=== PATIENT | male | born 1965 | race Caucasian/White ===

== ENCOUNTER 2022-01-29 07:23 | Day surgery (SDC) | payer OTHER ==
[~2022-01-29] VITALS: Ht 165.1 cm; Wt 78.2 kg
[~2022-01-29 07:23] MED LIST: AMLO5 PO; ASPI81CH PO; COQ; GEMF600 PO; LOSARTAN-HCTZ1 EAC2 PO; Mobic15 MG PO; Multiple Vitam1 EAC1 PO; RANI150 PO
== END 2022-01-29 09:55 | disposition home or self-care (01) ==
LOC: ORSCSDS 07:23
PROVIDERS: Surgery
PROC: 0DJD8ZZ Inspection of Lower Intestinal Tract, Via Natural or Artificial Opening Endoscopic (ICD-10-PCS; principal; 2022-01-29 08:45)
DX: Z12.11 Encounter for screening for malignant neoplasm of colon (principal); Z86.010 Personal history of colon polyps; N40.0 Benign prostatic hyperplasia without lower urinary tract symptoms; K21.9 Gastro-esophageal reflux disease without esophagitis; K57.30 Diverticulosis of large intestine without perforation or abscess without bleeding; I10 Essential (primary) hypertension; E78.5 Hyperlipidemia, unspecified; Z79.82 Long term (current) use of aspirin; Z79.899 Other long term (current) drug therapy
CPT/HCPCS: 82947; J2704; J7120

== ENCOUNTER 2024-03-15 05:41 | Day surgery (SDC) | payer OTHER ==
[~2024-03-15] VITALS: Ht 165.1 cm; Wt 91.2 kg
[2024-03-15] VITALS (13 sets, daily range): BP systolic 142–170; BP diastolic 91–116
[~2024-03-15 05:41] MED LIST changes: +LOSARTAN-HCTZ1 EACH PO
[2024-03-15] MEDS ORDERED: Lactated Ringer's 1,000 ML IV SCH (06:10)
[2024-03-15] MEDS ORDERED: propofoL 20 ML IV ONE (06:56)
[2024-03-15] MEDS ORDERED: FentaNYL Citrate 50 MCG/ML 2 ML Injection ONE (06:58)
[2024-03-15] MEDS ORDERED: Midazolam HCl 1MG / ML 2ML Vial ONE (06:59)
--- NOTE | 2024-03-15 07:01 | NUR ---
Ambulatory in Day SurgeryPre-Op teaching done. Pt verbalizes understanding. History, Chart, Medications and Allergies reviewed before start of procedure.Patient confirms NPO status and agrees with scheduled surgery. Patient reports completing Chlorhexadine shower X2 prior to admission to hospital. PT DOES NOT HAVE A PRE-ARRANGED RIDE AND WOULD LIKE TO TAKE A TAXI HOME. WILL REVIEW W/.
[2024-03-15] MEDS ORDERED: Bupivacaine 0.5% HCl 5 MG/ML 30MLVIAL ONE (07:16)
[2024-03-15] MEDS ORDERED: Dexamethasone Sod Phos 10 MG/ML 1ML VIAL ONE (07:46)
[2024-03-15] MEDS ORDERED: Ondansetron HCl 2 MG / ML 2ML Vial ONE (07:46)
[2024-03-15] MEDS ORDERED: Ketorolac Tromethamine 30mg Vial ONE (07:46)
[2024-03-15] MEDS ORDERED: HYDROcodone 5-APAP 325 TAB PO PRN ×2 (08:30→08:35)
[2024-03-15] MEDS ORDERED: Ibuprofen 600 MG Tab PO PRN (08:35)
[2024-03-15] MEDS ORDERED: Meloxicam 7.5 MG Tab PO PRN (08:35)
[2024-03-15] MEDS ORDERED: Ondansetron 4 MG TAB PO PRN (08:35)
[2024-03-15] MEDS ORDERED: FLU VACC TS2024-25(6MOS UP)/PF 45 MCG/0.5 ML SYRINGE IM PRN (08:35)
[2024-03-15] MEDS ORDERED: Aspirin 81 MG Chew PO SCH (09:00)
[2024-03-15] MEDS ORDERED: AmLODIPine Besylate 5 MG Tab PO SCH (09:00)
[2024-03-15] MEDS ORDERED: Losartan/HCTZ 50-12.5 TAB PO SCH (09:00)
--- NOTE | 2024-03-15 10:31 | NUR ---
POST OP: REPORT RECEIVED FROM MEHRAN ALLAN RN AT 1015 AND AT THIS TIME ASSUMED CARE. UPON ASSESSMENT PT IS A/O, VSS. PT NEEDING 3L O2 AT THIS TIME SP02 91%. LUNGS ARE CLEAR THROUGH OUT, PT ENCOURAGED TO DEEP BREATHE AND PLAN TO INSTRUCT IN I.S. USE. INCISION SITES ARE CDI. PT ABLE TO WALK TO THE BATHROOM, DENIES DIZZINESS AND N/V, AND PAIN. CALL LIGHT IN REACH.
[2024-03-15] MEDS ORDERED: Norco 5-325 Ta1 EACH PO (11:53)
--- NOTE | 2024-03-15 14:13 | NUR ---
DISCHARGE: PACKET PRINTED AND PT EDUCATED. IV DC'D WNL, TIP INTACT AND WRAPPED WITH COBAN. PT ABLE TO WALK FROM UNIT, DECLINED NEED FOR WHEELCHAIR.
== END 2024-03-15 12:35 | disposition home or self-care (01) ==
LOC: ORSCMMR 05:41 → ORD 07:30 → SURS 08:40 → ORSCMMR 12:35
PROVIDERS: Surgery
PROC: 0WQF0ZZ Repair Abdominal Wall, Open Approach (ICD-10-PCS; principal; 2024-03-15 07:30)
DX: K42.0 Umbilical hernia with obstruction, without gangrene (principal); I10 Essential (primary) hypertension; K21.9 Gastro-esophageal reflux disease without esophagitis; E78.5 Hyperlipidemia, unspecified; E11.9 Type 2 diabetes mellitus without complications; I51.7 Cardiomegaly; E78.00 Pure hypercholesterolemia, unspecified; E78.1 Pure hyperglyceridemia; Z86.11 Personal history of tuberculosis; E66.9 Obesity, unspecified; Z68.33 Body mass index [BMI] 33.0-33.9, adult; Z79.899 Other long term (current) drug therapy; Z79.82 Long term (current) use of aspirin
CPT/HCPCS: A9270; J1100; J1885; J2250; J2405; J2704; J3010; J7120

== ENCOUNTER → 2024-12-18 | Outpatient (CLI) | payer OTHER ==
[~2024-12-18] MED LIST changes: +Norco 5-325 Ta1 EACH PO
== END ==
LOC: LAB 17:54 → LAB SHORT 17:54
DX: R39.9 Unspecified symptoms and signs involving the genitourinary system (principal)
CPT/HCPCS: 87077; 87086; 87186